=== PATIENT | male | born 1995 | race Caucasian/White ===

== ENCOUNTER 2024-06-29 00:33 | Emergency (ER) | payer OTHER ==
--- NOTE | 2024-06-29 01:24 | ERPHSYRPT ---
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 His testicles on both sides hurt and the left side is worse than the right. There is also swelling of both testicles and the left side is more swollen than the right. Patient has not noticed any hematuria. There was no direct trauma to this area. He has never had anything like this before. Timing/Duration: day(s), worse Quality: aching, throbbing Onset Location: right testicle, left testicle Severity of Pain-Max: moderate Severity of Pain-Current: mild (To moderate) Modifying Factors: Improves With: nothing Associated Symptoms: swelling (Bilateral testicular swelling left side worse than right) Prior abdominal problems: none Sexual intercourse history: non-contributory Allergies/Adverse Reactions: No Known Drug Allergies Allergy (Unverified 06/29/24 02:08) Travel Risk - International Travel Have you traveled outside of the country in past 3 weeks: No - Emerging Infectious Disease Are you exhibiting symptoms associated with any current EIDs: No - Past Medical History Pertinent Past Medical History: No - Past Surgical History Past Surgical History: No - Review of Systems Constitutional: No Symptoms Eyes: No Symptoms Ears, Nose, & Throat: No Symptoms Respiratory: No Symptoms Cardiac: No Symptoms Genitourinary Symptoms: Testicle Pain (Bilateral. Left side worse than right) Musculoskeletal: No Symptoms Skin: No Symptoms Neurological: No Symptoms Psychological: No Symptoms Endocrine: No Symptoms Hematologic/Lymphatic: No Symptoms Immunological/Allergic: No Symptoms All Other Systems: Reviewed and Negative - Nursing Vital Signs Nursing Vital Signs: Initial Vital Signs Pulse Rate 53 L 06/29/24 02:06 Blood Pressure 142/78 06/29/24 02:06 O2 Sat by Pulse Oximetry 99 06/29/24 02:06 Pain Scale Pain Intensity 3 - Physical Exam General Appearance: no apparent distress, alert, anxiety Eye Exam: PERRL/EOMI, eyes nml inspection Ears, Nose, Throat Exam: normal ENT inspection, moist mucous membranes Neck Exam: normal inspection, non-tender, supple, full range of motion Respiratory Exam: airway intact, No chest tenderness, No respiratory distress Gastrointestinal/Abdomen Exam: No tenderness Rectal Exam: not done Male Genital Exam: scrotum tenderness (R), scrotum tenderness (L), testicular tenderness (R), testicular tenderness (L), scrotal swellling (Left side worse than right) Back Exam: normal inspection, normal range of motion, No CVA tenderness, No vertebral tenderness Extremity Exam: normal inspection, normal range of motion, pelvis stable Neurologic Exam: alert, oriented x 3, cooperative, workforce management analyst II-XII nml as tested, nml cerebellar function, nml station & gait, sensation nml Skin Exam: normal color, warm, dry Lymphatic Exam: adenopathy SpO2 Interpretation: normal O2 Delivery: Room Air - Course Nursing assessment & vital signs reviewed: Yes Ordered Tests: Active Orders 24 hr Category Date Time Status TESTICLE [US] Stat Exams 06/29/24 02:29 Ordered UA W/RFX UR CULTURE Stat Lab 06/29/24 02:26 Ordered - Progress Progress: unchanged Progress Note: 06/29/24 02:35 My medical decision making and the assignment of low complexity to this patient's medical issue today is based on review of the patient's past medical history, review the patient's medication list, reviewed patient drug allergy list, history present illness and physical findings on examination. The workup in this patient includes urinalysis and bilateral testicular ultrasounds. Differential diagnosis includes but is not limited to urinary tract infection, epididymitis, testicular torsion, testicular masses, varicocele, hydrocele 06/29/24 03:47 Urinalysis is pending. The cardiac cath technologist states that she sees bilateral orchitis without evidence of epididymitis or torsion. There is no evidence of testicular masses. Counseled pt/family regarding: lab results, diagnosis, need for follow-up, rad results Medical Desision Making - Independent Historian Additional History obtained from: Spouse - Diagnostic Testing Radiological Interpretation: Reviewed by me, Teleradiologist Report (Provided me by the cardiac cath technologist) - Risk of complications Minimal Risk: Minimal risk of morbidity - Departure Departure Disposition: Home Clinical Impression: Bilateral orchitis Condition: Stable Critical Care Time: No Referrals: KENY DRAPER MD [Primary Care Provider] - Follow up/PCP as directed Additional Instructions: Ice pack to tender area 3-4 times a day for the next 48 hours. Use Tylenol and ibuprofen for pain control. Call your primary care provider/clinic on 07/01/2024 to make arrangement for follow-up appointment to be seen in the next 3 to 5 days. Take your antibiotics as prescribed. Wear a jockstrap for scrotal support and pain control Prescriptions: Ciprofloxacin [Cipro 500 MG] 500 mg PO BID #10 tablet
[2024-06-29 02:25] VITALS: RESP 18; TEMP 97.1
[2024-06-29 04:00] LABS: Appearance Clear (Clear); Bacteria None Seen /HPF (None Seen); Bilirubin Negative (Negative); Blood Negative (Negative); Epithelial Cells None Seen /HPF (None Seen); Glucose, Urine Negative (Negative); Hyaline Casts NONE SEEN /LPF (0-2); Ketones Negative (Negative); Leukocyte Esterase Negative (Negative); Nitrite Negative (Negative); Ph 5.5 (4.6-8.0); Protein,Urine Dip Negative (Negative); RBC 0-2 /HPF (0-5); Specific Gravity >=1.030 (1.005-1.030); WBC 0-2 /HPF (0-5)
[2024-06-29] MEDS ORDERED: MOTRIN 600 MG ONE (04:01)
[2024-06-29] MEDS ORDERED: Levofloxacin 500 MG Tablet ONE (04:01)
[2024-06-29 04:02] LABS: ADD URINE CULTURE? NO (NO)
[2024-06-29] MEDS: MOTRIN 600 MG PO ONE (04:02)
[2024-06-29] MEDS: Levofloxacin 500 MG Tablet PO ONE (04:02)
[2024-06-29 04:05] VITALS: BP 116/69; PULSE 78; O2SAT 98
--- NOTE | 2024-06-29 05:46 | XRAY ---
Indication: Bilateral testicular pain. Two-dimensional testicular sonogram performed. Comparison: None. Right testicle measures 5.0 x 2.7 x 3.3 cm and demonstrates increased color Doppler flow favoring orchitis. Left testicle measures 3.8 x 2.6 x 2.7 cm and demonstrates normal color Doppler flow. No focal solid/cystic testicular mass. Epididymis bilaterally symmetric. No suspicious extratesticular mass or hydrocele. Impression: 1. Enlarged right testicle with increased color blood flow. Rule out orchitis. 2. Remaining testicular sonogram is negative. Comment: Preliminary report was given.
== END 2024-06-29 04:30 | disposition home or self-care (01) ==
LOC: ED 00:33
DX: N50.812 Left testicular pain (principal); N50.811 Right testicular pain; N45.2 Orchitis
CPT/HCPCS: 76870; 81001; 99283; A9270-GY